=== PATIENT | male | born 1960 | race Caucasian/White ===

== ENCOUNTER 2021-04-29 17:09 | Emergency (ER) | payer OTHER ==
[~2021-04-29] VITALS: Ht 177 cm; Wt 72.0 kg
[2021-04-29] MEDS ORDERED: ONDANSETRON 4 MG/2 ML (SDV) Z0FRAN IVP STA (17:25)
[2021-04-29] MEDS ORDERED: NS IV 1000 ML 1,000 ML IV STA (17:25)
[2021-04-29] MEDS ORDERED: fentaNYL INJ 100 MCG/2 ML AMP IVP STA ×2 (17:25→17:51)
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
--- NOTE | 2021-04-29 18:00 | Diagnostic Imaging Report ---
WRIST 3 VIEW LEFT INDICATION: Left wrist pain after injury. COMPARISON: Left forearm radiographs performed concurrently. TECHNIQUE: Three views of the left wrist. FINDINGS: There is an acute, comminuted wedge fracture in the distal radial diaphysis, which has a dominant spiral morphology. A nondisplaced hairline fracture likely extends into the metaphyseal region. However, there does not appear to be intra-articular extension into the radiocarpal joint. There is very mild volar angulation of the distal radial articular surface. Mildly displaced fracture of the ulnar styloid is present. IMPRESSION: 1. Mildly comminuted fracture of distal radial diaphysis does not have intra-articular extension. 2. Acute fracture of the ulnar styloid. Dictated by: Dictated on workstation # [id number]
[2021-04-29 18:01] LABS: BASOPHILS # (AUTO) 0.1 10^3/uL (0.0-0.1); BASOPHILS % (AUTO) 1 % (0-10); EOSINOPHILS # (AUTO) 0.1 10^3/uL (0.0-0.3); EOSINOPHILS % (AUTO) 0 % (0-10); HEMATOCRIT 41 % (40-54); HEMOGLOBIN 13.8 g/dL (13.3-17.7); LYMPHOCYTES # (AUTO) 2.4 10^3/uL (1.0-4.0); LYMPHOCYTES % (AUTO) 14 % (12-44); MEAN CORPUSCULAR HEMOGLOBIN 30 pg (25-34); MEAN CORPUSCULAR HGB CONC 33 g/dL (32-36); MEAN CORPUSCULAR VOLUME 90 fL (80-99); MEAN PLATELET VOLUME 10.8 fL (9.0-12.2); MONOCYTES # (AUTO) 1.1 10^3/uL (0.0-1.0); MONOCYTES % (AUTO) 7 % (0-12); NEUTROPHILS # (AUTO) 12.9 10^3/uL (1.8-7.8); NEUTROPHILS % (AUTO) 78 % (42-75); PLATELET COUNT 295 10^3/uL (130-400); WHITE BLOOD COUNT 16.7 10^3/uL (4.3-11.0)
--- NOTE | 2021-04-29 18:01 | Diagnostic Imaging Report ---
FOREARM 2 VIEW LEFT INDICATION: Arm pain after injury. COMPARISON: Wrist radiographs performed concurrently. TECHNIQUE: Two views of the left forearm. FINDINGS: Only the AP view covers the entire forearm. The lateral view does not include the proximal forearm. Based on this assessment, there is no dislocation of the proximal radius or ulna. Please see wrist report for details of the distal radial fracture. IMPRESSION: 1. No malalignment in the proximal radius or ulna. 2. Please see wrist report for details of the acute distal radial fracture. Dictated by: Dictated on workstation # [id number]
[2021-04-29 18:21] LABS: BILIRUBIN,TOTAL 0.2 MG/DL (0.1-1.0); CALCIUM 9.4 MG/DL (8.5-10.1); CREATININE SERUM 1.6 MG/DL (0.60-1.30); POTASSIUM 3.5 MMOL/L (3.6-5.0)
[2021-04-29] MEDS ORDERED: ACHD5005 PO (18:21)
[2021-04-29 18:22] LABS: ALBUMIN 4.3 GM/DL (3.2-4.5); TOTAL PROTEIN 6.9 GM/DL (6.4-8.2)
[2021-04-29 18:35] VITALS: BP 104/68
[2021-04-29 18:44] LABS: BAND NEUTROPHILS 2 %; BASOPHILS % (MANUAL) 2 %; LYMPHOCYTES % (MANUAL) 14 %; MONOCYTES % (MANUAL) 11 %; NEUTROPHILS % (MANUAL) 64 %
[2021-04-29 18:45] LABS: ATYPICAL LYMPHOCYTES 2 %; PLATELET ESTIMATE NORMAL; RBC MORPH NORMAL; REACTIVE LYMPHOCYTES 5 %
== END 2021-04-29 18:40 | disposition home or self-care (01) ==
LOC: ER FS 17:11
DX: S52.502A Unspecified fracture of the lower end of left radius, initial encounter for closed fracture (principal); S52.602A Unspecified fracture of lower end of left ulna, initial encounter for closed fracture; S00.31XA Abrasion of nose, initial encounter; S50.812A Abrasion of left forearm, initial encounter; V86.99XA Unspecified occupant of other special all-terrain or other off-road motor vehicle injured in nontraffic accident, initial encounter
CPT/HCPCS: 29105; 36415; 73090; 73110; 80053; 85007; 85027; 96374; 96375; 99284; A4565; A6223; G0480; 80320